=== PATIENT | male | born 1965 | race Caucasian/White ===

== ENCOUNTER 2017-11-26 14:30 | Outpatient (RCR) | payer MEDICARE, SELFPAY ==
--- NOTE | 2017-11-20 11:15 | PT.OTN ---
Current Diagnoses Pain in right shoulder (11/20/17) Pain in left shoulder (11/20/17) Transition note: On November 18, 2017 our therapy services consisting of Speech, Occupational, and Physical Therapy transitioned from the [employer] electronic documentation system to a new [employer] electronic documentation system.?? All documentation prior to November 18 can be found under [employer] saved data. From November 18 forward all medical record documentation will be in [employer] 6.1.
--- NOTE | 2017-11-20 15:05 | PT.OTN ---
Current Diagnoses Pain in right shoulder (11/20/17) Pain in left shoulder (11/20/17) Physical Therapy Treatment Note PT-OP-A Visit Information Start: 11/20/17 14:24 Freq: Status: Active Protocol: Activity Type Activity Date Activity User E-Sign Co-Sign Detail Recorded Client Recorded Date Recorded By Document 11/20/17 14:25 AMB [email or web address] 11/20/17 14:32 AMB 11/20/17 14:25 Out-Patient Physical Therapy Visit Information [Visit Information] -Visit Type Treatment Note -Visit Note G codes 07/30. POC expires . -Visit Start Time 10:30 -Visit Stop Time 11:15 -Total Visit Minutes 50 -Visit Number 11 [Evaluation Information] -Evaluation Date 10/06/17 PT-OP-C Subjective Start: 11/20/17 14:24 Freq: Status: Active Protocol: Activity Type Activity Date Activity User E-Sign Co-Sign Detail Recorded Client Recorded Date Recorded By Document 11/20/17 14:46 AMB [email or web address] 11/20/17 14:48 AMB 11/20/17 14:46 OP-PT Subjective [Patient Comments] -Patient Comments The patient reports his shoulder is feeling better. He can sleep on it without pain. However lifting heavy things (like a watering can) are still difficult. He has not tried to go back to the gym yet. -Patient Reported Progress Improving PT-OP-K Range of Motion Start: 11/20/17 14:24 Freq: Status: Active Protocol: Activity Type Activity Date Activity User E-Sign Co-Sign Detail Recorded Client Recorded Date Recorded By Document 11/20/17 14:48 AMB [email or web address] 11/20/17 14:51 AMB 11/20/17 14:48 Shoulder Goniometric Range of Motion [Shoulder] Measured in Degrees Left -Testing Position Sitting -Flexion 145 -Abduction 135 Right -Testing Position Sitting -Flexion 145 -Abduction 150 PT-OP-Q Treatments Start: 11/20/17 14:24 Freq: Status: Active Protocol: Activity Type Activity Date Activity User E-Sign Co-Sign Detail Recorded Client Recorded Date Recorded By Document 11/20/17 14:51 AMB [email or web address] 11/20/17 15:02 AMB 11/20/17 14:51 Cardio Equipment [Upper Body Ergometer (UBE)] -Duration (Minutes) 5 -RPM 60 [Rowing Machine] -Duration (Minutes) 5 Therapeutic Exercises [Supine Exercises] 1 -Supine Exercise Name Shoulder flexion -Side bilateral -Resistance 2# -Reps/Minutes 2x10 [Standing Exercises] 3 -Standing Exercise Name Body blade flexion and abduction to shoulder height -Side bilateral -Reps/Minutes 7 minutes 2 -Standing Exercise Name Shoulder ER -Side bilateral -Resistance #2 theraband -Reps/Minutes 2x10 1 -Standing Exercise Name Shoulder extension -Side bilateral -Resistance #2 theraband -Reps/Minutes 3x10 Therapeutic Activity [Therapeutic Activity] 1 -Name Floor to waist lift -Reps/Minutes 5 -Comments 20#- poor body mechanics but pt does not note shoulder pain when he keeps the box close to his body. Manual Therapy Treatment [Soft Tissue Mobilization] 1 -Body Location L Biceps tendon -Mobilization Type Cross-Friction -Intensity/Depth Moderate -Body Position Supine [Joint Mobilizations] 1 -Joint Left glenohumeral -Direction AP, inferior -Grade III -Body Position Supine -Reps/Duration 5 minutes PT-OP-R Modalities Start: 11/20/17 14:48 Freq: Status: Active Protocol: Activity Type Activity Date Activity User E-Sign Co-Sign Detail Recorded Client Recorded Date Recorded By Document 11/20/17 14:51 AMB [email or web address] 11/20/17 15:02 AMB 11/20/17 14:51 Hot Pack/Cold Pack [Treatment] Cold Pack -Location Bilateral shoulders -Patient Position Supine -Treatment Duration (minutes) 10 -Patient Tolerance Good PT-OP-T Assessment and Plan Start: 11/20/17 14:24 Freq: Status: Active Protocol: Activity Type Activity Date Activity User E-Sign Co-Sign Detail Recorded Client Recorded Date Recorded By Document 11/20/17 15:03 AMB [email or web address] 11/20/17 15:05 AMB 11/20/17 15:03 Physical Therapy Assessment [Assessment Summary] -Assessment Patient is improving, but has not yet returned to his gym workout. Tolerated rowing machine well today. Encouraged to try the gym one time this week before next week's PT appointment to see how he tolerates it. Physical Therapy Plan [Next Visit Focus/Plan] -Next Visit Plan Follow up on return to gym activities.
--- NOTE | 2017-11-26 16:19 | PT.OTN ---
Current Diagnoses Pain in right shoulder (11/26/17) Pain in left shoulder (11/26/17) Physical Therapy Treatment Note PT-OP-A Visit Information Start: 11/20/17 14:24 Freq: Status: Active Protocol: Document 11/26/17 14:30 AMB (Rec: 11/26/17 14:37 AMB [id number]) Out-Patient Physical Therapy Visit Information Visit Information Visit Type Treatment Note Visit Note G codes 08/30. POC expires . Visit Start Time 14:30 Visit Stop Time 15:15 Total Visit Minutes 45 Visit Number 12 Evaluation Information Evaluation Date 10/06/17 PT-OP-C Subjective Start: 11/20/17 14:24 Freq: Status: Active Protocol: Document 11/26/17 14:30 AMB (Rec: 11/26/17 14:37 AMB [id number]) OP-PT Subjective Patient Comments Patient Comments Patient went to the gym yesterday and is feeling some muscle soreness but no pain in the joint. PT-OP-K Range of Motion Start: 11/20/17 14:24 Freq: Status: Active Protocol: Document 11/26/17 14:30 AMB (Rec: 11/26/17 16:13 AMB [email or web address]) Shoulder Goniometric Range of Motion Shoulder Measured in Degrees Left Testing Position Sitting Flexion 145 Abduction 135 Right Testing Position Sitting Flexion 145 Abduction 150 PT-OP-Q Treatments Start: 11/20/17 14:24 Freq: Status: Active Protocol: Document 11/26/17 14:30 AMB (Rec: 11/26/17 16:13 AMB [email or web address]) Gym Equipment Cable Column (Body Solid) 1 Details lat pull down Resistance 2 plates Reps/Time 2 x 8 Therapeutic Exercises Sitting Exercises 1 Sitting Exercise Name Ashely Side bilateral Reps/Minutes 5 min Comments flexion and scaption Standing Exercises 2 Standing Exercise Name Shoulder ER Side bilateral Resistance #2 theraband Reps/Minutes 2x10 1 Standing Exercise Name Shoulder extension Side bilateral Resistance #2 theraband Reps/Minutes 3x10 Manual Therapy Treatment Soft Tissue Mobilization 1 Body Location L Biceps tendon Mobilization Type Cross-Friction Intensity/Depth Moderate Body Position Supine Joint Mobilizations 1 Joint Left glenohumeral Direction AP, inferior Grade III Body Position Supine Reps/Duration 5 minutes Manual Techniques PROM Type PROM all planes Body Position Supine Comments pain with end range abduction and external rotation PT-OP-R Modalities Start: 11/20/17 14:48 Freq: Status: Active Protocol: Document 11/26/17 14:30 AMB (Rec: 11/26/17 16:13 AMB [email or web address]) Hot Pack/Cold Pack Treatment Cold Pack Location Bilateral shoulders Patient Position Supine Treatment Duration (minutes) 10 Patient Tolerance Good PT-OP-T Assessment and Plan Start: 11/20/17 14:24 Freq: Status: Active Protocol: Document 11/26/17 14:30 AMB (Rec: 11/26/17 16:13 AMB [email or web address]) Physical Therapy Assessment Goals 3 Impairment Strength Short Term Goal (STG) The patient will lift a bag of groceries from the floor to countertop height without increased shoulder pain. -- NOT MET 2 Impairment Positional tolerance Short Term Goal (STG) The patient will sit with good posture for 20 minutes without increased shoulder pain --MET Correction Goal (LTG) Te patient will be abl eto sleep on his side without shoulder pain--MET (patient uses pillows to prop so he can sleep without pain. 1 Impairment ROM Short Term Goal (STG) The patient will show improved ROM-- MET Correction Goal (LTG) The patient will don a jacket without increased shoulder pain.--MET Assessment Summary Assessment The patient's left and right shoulder have improved significantly, but his strength is still impaired. He tolerated a modified gym routine, and is able to lift light weights without pain, but lifting a watering can or a heavy bag of groceries can still reproduce his shoulder pain on the left, although he states it is mild pain. He states that, consideringhis 20 % coinsurance, he is ready to be discharged at this time. Physical Therapy Plan Discharge Physical Therapy Discharge Reasons Goals Met Discharge Comments The patient continues to have mild pain with lifting more than 5-10#, but feels his is ready to be independent with his return to the gym.
== END 2017-12-09 13:11 ==
LOC: PHYS 14:30
PROVIDERS: Visit Provider Physician Assistant
DX: M25.511 Pain in right shoulder (principal); M25.512 Pain in left shoulder
CPT/HCPCS: 97010; 97110; 97140

== ENCOUNTER → 2019-08-27 11:44 | Outpatient (CLI) | payer MEDICARE, SELFPAY ==
--- NOTE | 2019-08-27 | DI.RAD.S_ITS ---
PROCEDURE: XR FOOT LT MIN 3V INDICATIONS: 1st metatarsal joint pain, gout suspected TECHNIQUE: 3 views of the foot were acquired. COMPARISON: None. FINDINGS: Bones: No fractures or dislocations. No suspicious bony lesions. Mild first MTP joint degeneration. Marginal lucency project at the medial aspect of the first MTP joint. No comparisons available Diffuse interphalangeal joint degeneration. Soft tissues: No tibiotalar joint effusion. Achilles tendon appears normal. IMPRESSION: Mild first MTP joint degeneration Marginal lucencies, potentially early erosions, projecting at the first MTP joint. No comparisons available. Dictated by: Jeremy Newman M.D. on 08/27/2019 at 12:39 Approved by: Jeremy Newman M.D. on 08/27/2019 at 12:41
== END ==
PROVIDERS: PCP Internal Medicine; Referring Provider Internal Medicine; Visit Provider Internal Medicine
DX: M10.9 Gout, unspecified (principal); M19.072 Primary osteoarthritis, left ankle and foot
CPT/HCPCS: 73630

== ENCOUNTER → 2022-06-05 11:40 | Outpatient (CLI) | payer OTHER, SELFPAY ==
[2022-06-05 13:04] LABS: COVID19 -Nasal RAPID Negative (Negative)
== END ==
PROVIDERS: PCP Internal Medicine; Visit Provider Surgery
DX: Z20.822 Contact with and (suspected) exposure to COVID-19 (principal); Z01.812 Encounter for preprocedural laboratory examination
CPT/HCPCS: 87635; C9803

== ENCOUNTER 2022-06-06 12:50 | Day surgery (SDC) | payer OTHER, SELFPAY ==
[2022-06-06 13:32] VITALS: BP 153/108; PULSE 94; RESP 16; TEMP 36.2; O2SAT 97; BMI 26.9
[2022-06-06] MEDS: LACTATED RINGERS 1,000 ML 200 ML IV (13:45)
--- NOTE | 2022-06-06 14:36 | PM.HP.1 ---
History of Present Illness History of Present Illness Date Patient Seen: 06/06/22 Time Patient Seen: 14:36 Chief complaint: SCREENING COLONOSCOPY Narrative: Behzad is a 57-year-old man who is here for his colonoscopy. He has never had 1 before. He has no known family history of colon cancer. He is 6'8''. Patient History Family & Social History Tobacco & Substance use: Smoking Status Never smoker alcohol intake never Substance Use Type does not use Meds Home Medications and Allergies Home Medications Medication Instructions Recorded Confirmed Type Fluoxetine Hydrochloride (PROZAC) 10 mg PO QDAY ##0 08/27/11 06/06/22 History atorvastatin 10 mg tablet (Lipitor) 10 mg PO HS ##0 08/27/11 06/06/22 History clonazepam 1 mg 3XD 06/06/22 06/06/22 History quetiapine 50 mg tablet 50 mg PO BEDTIME 06/06/22 06/06/22 History venlafaxine 300 mg PO 06/06/22 History Exam Vital Signs (past 8 hours): - 06/06/22 13:32 Temperature 97.1 F L Pulse Rate 94 H Respiratory Rate 16 Blood Pressure 153/108 H Pulse Oximetry 97 Oxygen Delivery Method Room Air Oxygen Delivery Method Room Air Assessment & Plan Assessment and plan (1) Colon cancer screening: Status: Acute Plan Risks and benefits of colonoscopy reviewed and he would like to proceed Time Spent With Patient Critical Care time: I spent a total of [] minutes of critical care time on this patient's care today; this time is exclusive of procedural time.
--- NOTE | 2022-06-06 14:57 | SUR.OPER ---
external abdominal pressure and repositioning on back
--- NOTE | 2022-06-06 15:13 | PM.OP.COLON ---
Operative Date/Time/Diagnoses Date of procedure: 06/06/22 Time of procedure: 15:13 Pre-op diagnosis: Colon cancer screening Post-op diagnosis: same Procedure & Clinicians Study performed: Colonoscopy Same procedure as scheduled: Yes Surgeon: Ron Duran Procedure Notes Procedure in detail: Surgeon: Ron Duran MD Anesthesia: Dr. Brown Procedure: The patient was brought to the endoscopy suite, placed in left lateral decubitus position. The patient was connected to monitoring devices. A time-out was performed. Sedation was administered. Once the patient was adequately sedated, a digital rectal exam was performed and was normal. The scope was then inserted and advanced to the cecum where the appendiceal orifice was identified and photographed. The scope was then slowly withdrawn over greater than 6 minutes. The mucosa was thoroughly inspected. No abnormalities were noted. The scope was retroflexed in the rectum. No abnormalities were noted. The scope was straightened and removed. The patient was awakened and brought to recovery. Scope withdrawal time: 11 minutes Sedation time: 27 minutes EBL: 0 Findings: Normal colon Post-procedure Recommendations: Colonoscopy in 10 years Disposition: PACU
== END 2022-06-06 15:32 | disposition home or self-care (01) ==
PROVIDERS: PCP Internal Medicine; Referring Provider Surgery; Visit Provider Surgery
PROC: 0DJD8ZZ Inspection of Lower Intestinal Tract, Via Natural or Artificial Opening Endoscopic (ICD-10-PCS; CPT 45378; principal; 2022-06-06 14:15)
DX: Z12.11 Encounter for screening for malignant neoplasm of colon (principal)
CPT/HCPCS: G0121; J2250; J2704; J3010

== ENCOUNTER → 2022-08-15 17:15 | Outpatient (CLI) | payer OTHER, SELFPAY ==
--- NOTE | 2022-08-15 | DI.US.S_ITS ---
PROCEDURE: US ABDOMEN LIMITED INDICATIONS: LEFT GROIN LYMPHADENOPATHY TECHNIQUE: Real-time focused scanning was performed of the abdomen, with image documentation. COMPARISON: [facility], CT, KIDNEY/ URETER/BLADDER, 08/27/2011, 2:09. FINDINGS: Sonographic images of left groin lymph nodes demonstrate 2 lymph nodes measuring 4.5 x 1.1 x 1.8 cm and 4.1 x 0.9 x 0.8 cm. On prior exam in 2012 there is a normal appearing lymph node measuring 1.1 cm in short axis was present. It is unclear if this exactly corresponds to lymph node identified on current exam. There is maintenance of the fatty hilum. IMPRESSION: Left groin lymph nodes with the larger node demonstrating borderline enlargement within the short axis with normal appearing fatty hilum. Findings are considered indeterminate although possibly unchanged compared to 2012 which demonstrated a similar appearing lymph node. Dictated by: Aarti Mendoza M.D. on 08/16/2022 at 12:46 Approved by: Aarti Mendoza M.D. on 08/16/2022 at 12:49
== END ==
LOC: US 17:17
PROVIDERS: PCP Internal Medicine; Referring Provider Physician Assistant; Visit Provider Physician Assistant
DX: R59.0 Localized enlarged lymph nodes (principal)
CPT/HCPCS: 76705

== ENCOUNTER → 2022-08-30 12:45 | Outpatient (CLI) | payer OTHER, SELFPAY ==
[2022-08-30 13:18] LABS: Add Manual Diff / Slide Review NO; Basophils Absolute Auto 100 /uL (0-100); Basophils Percent Auto 2.1 % (0-2); Eosinophils Absolute Auto 300 /uL (0-450); Eosinophils Percent Auto 4.5 % (2-4); Hemoglobin 14.3 g/dL (13.5-17.5); Lymphocytes Absolute Auto 1600 /uL (1100-4500); Mean Corpuscular HGB Conc 34.1 % (30-36); Mean Corpuscular Hemoglobin 29.7 PG (26-34); Mean Corpuscular Volume 87.1 fL (80-100); Monocytes Absolute Auto 700 /uL (0-900); Monocytes Percent Auto 10.7 % (3-14); Neutrophils Absolute Auto 4000 /uL (1500-7000); Neutrophils Percent Auto 58.7 % (50-75); Platelet Count 356 X10^3/uL (150-400); Red Blood Cell Count 4.82 X10^6/uL (4.5-5.9); Red Cell Distribution Width 14.3 % (11.6-14.8); White Blood Cell Count 6.7 X10^3/uL (4.5-11.0)
[2022-08-30 13:36] LABS: Alanine Aminotransferase 36 IU/L (<50); Albumin 4.1 g/dL (3.5-5.0); Albumin Globulin Ratio 1.1 (1.0-2.8); Alkaline Phosphatase 94 U/L (38-126); Aspartate Aminotransferase 29 IU/L (17-59); Bilirubin Total 0.5 mg/dL (0.2-1.3); Blood Urea Nitrogen 17 mg/dL (9-20); Calcium 9.2 mg/dL (8.4-10.2); Carbon Dioxide 30 mmol/L (22-32); Chloride 104 mmol/L (98-107); Cholesterol 238 mg/dL (140-199); Estimated Glomerular Filt Rate > 60 mL/min (>60); Globulin 3.6 g/dL (1.7-4.1); Glucose 119 mg/dL (70-100); HDL Cholesterol 24 mg/dL (40-60); HEMOLYSIS < 15 (0-50); Potassium 4.2 mmol/L (3.4-5.1); Sodium 143 mmol/L (137-145); Total Protein 7.7 g/dL (6.3-8.2); Triglycerides 511 mg/dL (35-150)
== END ==
PROVIDERS: PCP Physician Assistant; Referring Provider Physician Assistant; Visit Provider Physician Assistant
DX: E78.2 Mixed hyperlipidemia (principal); R59.9 Enlarged lymph nodes, unspecified; D72.821 Monocytosis (symptomatic); R79.89 Other specified abnormal findings of blood chemistry
CPT/HCPCS: 36415; 80053; 80061; 85025

== ENCOUNTER → 2024-10-26 08:05 | Outpatient (CLI) | payer OTHER, SELFPAY ==
--- NOTE | 2024-10-26 08:06 | DI.US.S_ITS ---
PROCEDURE: US ABDOMEN LIMITED INDICATIONS: ELEV LFT'S TECHNIQUE: Real-time scanning was performed of the abdominal and retroperitoneal organs, with image documentation. COMPARISON: [facility], , US ABDOMEN LIMITED, 08/15/2022, 17:41. FINDINGS: Liver: Liver is normal in size and homogeneous in echotexture. The parenchyma is hyperechoic. Gallbladder: No gallstones. No wall thickening. No pericholecystic edema. Negative sonographic Cadena's sign. Biliary ducts: Intrahepatic bile ducts are non-dilated. Extrahepatic bile duct caliber measures 5 mm. Normal is 6-7 mm or less in diameter, or 10 mm or less post-cholecystectomy. Pancreas: Obscured due to overlying bowel gas. Miscellaneous: No free abdominal fluid. IMPRESSION: 1. Hepatic steatosis versus underlying hepatocellular disease. 2. No other acute sonographic abnormality of the right upper quadrant. Dictated by: Jaxon Triana M.D. on 10/26/2024 at 14:20 Approved by: Jaxon Triana M.D. on 10/26/2024 at 14:21
== END ==
LOC: US 08:06
PROVIDERS: PCP Physician Assistant; Referring Provider Physician Assistant; Visit Provider Physician Assistant
DX: R79.89 Other specified abnormal findings of blood chemistry (principal); R59.1 Generalized enlarged lymph nodes
CPT/HCPCS: 76705

== ENCOUNTER → 2025-02-10 16:52 | Outpatient (CLI) | payer OTHER, SELFPAY ==
--- NOTE | 2025-02-10 | DI.RAD.S_ITS ---
PROCEDURE: XR FOOT RT 2V INDICATIONS: RT FOOT TECHNIQUE: 3 views of the foot were acquired. COMPARISON: [facility], CR, XR FOOT LT MIN 3V, 08/27/2019, 11:57. FINDINGS AND IMPRESSION: No acute displaced fracture or dislocation is identified. Mild 1st MTP arthrosis. A small exostosis is seen at the medial 1st distal phalanx. No suspicious soft tissue calcifications. If there is high concern for further derangement, consider MRI evaluation. Dictated by: Boris Arenas M.D. on 02/11/2025 at 10:55 Approved by: Boris Arenas M.D. on 02/11/2025 at 10:56
--- NOTE | 2025-02-10 | DI.RAD.S_ITS ---
PROCEDURE: XR ANKLE RT MIN 3V INDICATIONS: RT FOOT PAIN TECHNIQUE: 3 views of the ankle were acquired. COMPARISON: None. FINDINGS AND IMPRESSION: Mildly displaced fracture fragment at the tip of the lateral malleolus, below the syndesmosis. Correlate with trauma history and any focal symptoms. Chronic appearing sclerotic deformity is seen in the distal lateral tibial shaft. This could be due to prior injury versus intrinsic bone lesion. No tibiotalar dislocation. Dictated by: Boris Arenas M.D. on 02/11/2025 at 10:53 Approved by: Boris Arenas M.D. on 02/11/2025 at 10:55
== END ==
PROVIDERS: PCP Physician Assistant; Referring Provider Physician Assistant; Visit Provider Physician Assistant
DX: S82.61XA Displaced fracture of lateral malleolus of right fibula, initial encounter for closed fracture (principal); S93.401A Sprain of unspecified ligament of right ankle, initial encounter; S93.409A Sprain of unspecified ligament of unspecified ankle, initial encounter; X58.XXXA Exposure to other specified factors, initial encounter
CPT/HCPCS: 73610; 73620

== ENCOUNTER → 2025-04-12 16:18 | Outpatient (CLI) | payer OTHER, SELFPAY ==
--- NOTE | 2025-04-12 16:20 | DI.RAD.S_ITS ---
PROCEDURE: ORTHO-XR ANKLE 3V WB RIGHT INDICATIONS: PAIN TECHNIQUE: 3 views of the ankle were acquired. COMPARISON: [facility], CR, XR ANKLE RT MIN 3V, 02/10/2025, 16:52. [facility], CR, XR ANKLE 3 VIEWS WEIGHT BEARING RIGHT, 02/25/2025, 13:10. [facility], CR, XR ANKLE 3 VIEWS WEIGHT BEARING RIGHT, 03/23/2025, 14:02. FINDINGS: Bones: Normal displaced transverse fracture of the distal fibular tip is redemonstrated with unchanged alignment. No osseous bridging is seen across the fracture line. 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 Soft tissues: Mild soft tissue edema over the lateral malleolus. IMPRESSION: Distal fibular tip fracture redemonstrated with unchanged alignment. Approved by: Bg Klein M.D. on 04/13/2025 at 11:03
== END ==
PROVIDERS: PCP Physician Assistant; Referring Provider Podiatrist; Visit Provider Podiatrist
DX: S82.61XA Displaced fracture of lateral malleolus of right fibula, initial encounter for closed fracture (principal); M25.571 Pain in right ankle and joints of right foot; X58.XXXA Exposure to other specified factors, initial encounter
CPT/HCPCS: 73610

== ENCOUNTER → 2025-05-03 14:42 | Outpatient (CLI) | payer OTHER, SELFPAY ==
--- NOTE | 2025-05-03 14:44 | DI.RAD.S_ITS ---
PROCEDURE: XR ANKLE RT MIN 3V INDICATIONS: RT ANKLE PAIN TECHNIQUE: 3 views of the ankle were acquired. COMPARISON: [facility], CR, XR ANKLE RT MIN 3V, 02/10/2025, 16:52. FINDINGS: Bones: Nondisplaced transverse fracture of the lateral malleolus tip shows no progression osseous union since a comparison examination nearly 3 months ago. 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 Tibiotalar and talocalcaneal joints: Normal in width and alignment without arthritic change. Soft tissues: No soft tissue swelling, calcification or mass. IMPRESSION: Nondisplaced transverse fracture lateral malleolar tip showing no progression in osseous union since an x-ray nearly 3 months ago Dictated by: Dimas James M.D. on 05/04/2025 at 13:28 Approved by: Dimas James M.D. on 05/04/2025 at 13:30
== END ==
PROVIDERS: PCP Physician Assistant; Referring Provider Podiatrist; Visit Provider Podiatrist
DX: S82.64XK Nondisplaced fracture of lateral malleolus of right fibula, subsequent encounter for closed fracture with nonunion (principal); M25.571 Pain in right ankle and joints of right foot; X58.XXXD Exposure to other specified factors, subsequent encounter
CPT/HCPCS: 73610